=== PATIENT | male | born 1935 | race Caucasian/White ===

== ENCOUNTER 2018-11-04 09:55 | Outpatient (CLI) | payer MEDICARE ==
--- NOTE | 2018-11-04 11:18 | RAD ---
PA AND LATERAL VIEWS CHEST: Date: 11/04/18 HISTORY: Dyspnea. FINDINGS: The heart size is normal. The aorta is tortuous. The lungs are expanded without focal areas of consol idation, pneumothoraces, or pleural effusions. There are degenerative changes in the spine. A battery source is seen in the left anterior chest with leads traversing superiorly into the neck. IMPRESSION: No radiographic evidence of acute cardiopulmonary process. POS: [facility]
== END 2018-11-04 09:56 | disposition home or self-care (01) ==
LOC: RAD 09:55
PROVIDERS: ATTEND Internal Medicine Critical Care Medicine
DX: R06.00 Dyspnea, unspecified (principal)
CPT/HCPCS: 71046

== ENCOUNTER 2018-12-22 09:27 | Outpatient (CLI) | payer MEDICARE ==
--- NOTE | 2018-12-22 11:53 | RAD ---
XR Chest Pa Lat STANDARD HISTORY: Shortness of breath COMPARISON: 11/04/2018 exams. FINDINGS: Heart size and mediastinum are within normal limits. The lungs are clear of infiltrates. An electronic device overlies the left chest. IMPRESSION: No active intrathoracic disease.
--- NOTE | 2018-12-22 14:12 | NM ---
Radionucleotide ventilation perfusion lung scan HISTORY: Chest pain. I 26.99. FINDINGS: Ventilation images show good uptake of radiotracer throughout each lung. Mild areas of trap ping on washout views. Perfusion images show heterogeneous uptake throughout each lung without focal perfusion defect. Perfu milo gradient within normal limits. IMPRESSION: Exam is negative for clinically significant pulmonary embolus.
== END 2018-12-22 09:28 | disposition home or self-care (01) ==
LOC: NM 09:27
PROVIDERS: ATTEND Internal Medicine Critical Care Medicine
DX: I26.99 Other pulmonary embolism without acute cor pulmonale (principal)
CPT/HCPCS: 71046; 78582; A9540; A9558

== ENCOUNTER 2020-01-18 12:16 | Outpatient (CLI) | payer MEDICARE ==
--- NOTE | 2020-01-18 12:59 | RAD ---
Chest 2 views HISTORY: Dyspnea. COMPARISON: 12/22/2018. FINDINGS: Right iliac silhouette and pulmonary vasculature are unremarkable. Mediastinum is midline. Vagal nerve stimulator pack overlies the left anterior chest. No lobar consolidation, pleural fluid, or pneumothorax evident. Degenerative changes thoracic spine on the lateral view. IMPRESSION : Chronic-type findings are stable. No active cardiopulmonary abnormalities are demonstrated.
== END 2020-01-18 12:17 | disposition home or self-care (01) ==
LOC: BICRAD 12:16
PROVIDERS: ATTEND Internal Medicine Critical Care Medicine
DX: R06.00 Dyspnea, unspecified (principal)
CPT/HCPCS: 71046

== ENCOUNTER 2021-11-21 09:49 | Observation (INO) | payer MEDICARE ==
[2021-11-21 11:22] LABS: #Basophils 0.1 thou/uL (0.0-0.2); #Eosinphils 0.3 thou/uL (0.0-0.7); #Lymphocytes 1.2 thou/uL (1.20-3.40); #Monocytes 0.6 thou/uL (0.11-0.59); %Basophils 1.1 % (0.0-1.0); %Eosinophils 4.3 % (0.0-10.0); %Lymphocytes 19.2 % (21.0-51.0); %Monocytes 9.9 % (0.0-10.0); %Neutrophils 65.5 % (42.0-75.0); Hemoglobin 15.5 g/dL (14.0-18.0); Mean Corpuscular HGB CONC 32.6 g/dL (32.0-36.0); Mean Corpuscular Hemoglobin 30.5 pg (27.0-31.0); Mean Corpuscular Volume 93.5 fL (78.0-98.0); Mean Platelet Volume 6.6 fL (7.4-10.4); Platelet Count 207 thou/uL (130-400); RBC Distribution Width 12.2 % (11.5-14.5); Red Blood Cell (RBC) Count 5.08 mill/uL (4.70-6.10); White Blood Cell (WBC) Count 6.1 thou/uL (4.8-10.8)
[2021-11-21 11:42] LABS: ALT (SGPT) 20 U/L (8-55); AST (SGOT) 20 U/L (5-34); Albumin 4.1 g/dL (3.4-4.8); Alkaline Phosphatase 56 U/L (40-110); Anion Gap 11 mmol/L (10-20); BUN (Urea Nitrogen) 17 mg/dL (8.4-25.7); Bilirubin, Total 0.7 mg/dL (0.2-1.2); Calc. Creatinine Clearance 0 mL/min (70-130); Calcium 9.3 mg/dL (7.8-10.44); Carbon Dioxide 30 mmol/L (23-31); Chloride 102 mmol/L (98-107); Globulin 3.1 g/dL (2.4-3.5); Glucose 128 mg/dL (83-110); Protein, Total 7.2 g/dL (5.8-8.1); Sodium 139 mmol/L (136-145)
[2021-11-21] MEDS ORDERED: Aspirin Chewable 81 MG TAB ONE (13:33)
[2021-11-21] MEDS ORDERED: Apixaban 2.5 MG TAB PO SCH (13:45)
[2021-11-21] MEDS ORDERED: Acetaminophen 650 MG Suppository PR PRN (14:16)
[2021-11-21] MEDS ORDERED: Ondansetron PF 4 MG/2 ML Vial IVP PRN (14:16)
[2021-11-21] MEDS ORDERED: hydrALAZINE 20 MG/ML VIAL SLOW IVP PRN (14:16)
[2021-11-21] MEDS ORDERED: Acetaminophen 325 MG TAB PO PRN (14:16)
[2021-11-21] MEDS ORDERED: Ondansetron ODT 4 MG TAB PO PRN (14:16)
[2021-11-21 15:23] LABS: SARS-CoV-2 NAA Rapid Test Not Detected (NotDetected)
[2021-11-21 19:49] VITALS: BMI 28.8
[2021-11-21] MEDS: Atorvastatin Calcium 40 MG TAB PO SCH (21:24)
[2021-11-21] MEDS: Apixaban 2.5 MG TAB PO SCH (21:25)
[2021-11-22 06:38] LABS: #Eosinphils 0.5 thou/uL (0.0-0.7); #Lymphocytes 1.2 thou/uL (1.20-3.40); #Monocytes 0.8 thou/uL (0.11-0.59); #Neutrophils 3.3 thou/uL (1.40-6.50); %Basophils 0.7 % (0.0-1.0); %Eosinophils 8.9 % (0.0-10.0); %Lymphocytes 20.7 % (21.0-51.0); %Monocytes 13.8 % (0.0-10.0); %Neutrophils 55.9 % (42.0-75.0); Hemoglobin 14.5 g/dL (14.0-18.0); Mean Corpuscular HGB CONC 32.8 g/dL (32.0-36.0); Mean Corpuscular Hemoglobin 30.7 pg (27.0-31.0); Mean Corpuscular Volume 93.6 fL (78.0-98.0); Mean Platelet Volume 6.7 fL (7.4-10.4); Platelet Count 181 thou/uL (130-400); Red Blood Cell (RBC) Count 4.71 mill/uL (4.70-6.10); White Blood Cell (WBC) Count 5.9 thou/uL (4.8-10.8)
[2021-11-22 06:59] LABS: Anion Gap 11 mmol/L (10-20); BUN (Urea Nitrogen) 18 mg/dL (8.4-25.7); Calc. Creatinine Clearance 61 mL/min (70-130); Calcium 8.8 mg/dL (7.8-10.44); Carbon Dioxide 28 mmol/L (23-31); Cardiac Risk 3.3 (Less than 4.5); Chloride 104 mmol/L (98-107); Cholesterol 153 mg/dl (< 200 Desired); Glucose 147 mg/dL (83-110); HDL Cholesterol 46 mg/dL (>60 Neg Risk); LDL Cholesterol, Calculated 94 mg/dL; Potassium 4.1 mmol/L (3.5-5.1); Sodium 139 mmol/L (136-145); Triglycerides 63 mg/dL (Less than 150)
[2021-11-22] MEDS: Finasteride 5 MG TAB PO SCH (07:58)
[2021-11-22] MEDS: Apixaban 2.5 MG TAB PO SCH ×2 (07:59→20:08)
[2021-11-22] MEDS: Aspirin 81 mg Enteric Coated Tablet PO SCH (07:59)
[2021-11-22] MEDS: Montelukast Sodium 10 mg Tablet PO SCH (07:59)
[2021-11-22] MEDS ORDERED: ROTIGOTINE 6 MG TD SCH (09:00)
[2021-11-22] MEDS ORDERED: ROTIGOTINE 2 MG TD SCH (13:00)
[2021-11-22] MEDS ORDERED: ROTIGOTINE 4 MG TD SCH (13:00)
[2021-11-22] MEDS: Atorvastatin Calcium 40 MG TAB PO SCH (20:07)
[2021-11-22] MEDS ORDERED: Rasagiline Mesylate 1 MG Tab PO SCH (21:00)
[2021-11-23 07:19] VITALS: TEMP 97.7
[2021-11-23] MEDS: Finasteride 5 MG TAB PO SCH (09:01)
[2021-11-23] MEDS: Montelukast Sodium 10 mg Tablet PO SCH (09:01)
[2021-11-23] MEDS: Aspirin 81 mg Enteric Coated Tablet PO SCH (09:01)
[2021-11-23] MEDS: Apixaban 2.5 MG TAB PO SCH (09:01)
[2021-11-23 12:39] VITALS: BP 141/74
== END 2021-11-23 12:02 | disposition home or self-care (01) ==
LOC: ERS 09:49 → ERHOLD 13:16 → 2SW 19:21
PROVIDERS: ADMIT Hospitalist; ATTEND Hospitalist
DX: R53.1 Weakness (principal); G20 Parkinson's disease; I65.23 Occlusion and stenosis of bilateral carotid arteries; N40.0 Benign prostatic hyperplasia without lower urinary tract symptoms; Z86.711 Personal history of pulmonary embolism; Z79.01 Long term (current) use of anticoagulants; Z79.899 Other long term (current) drug therapy; Z96.82 Presence of neurostimulator; Z20.822 Contact with and (suspected) exposure to COVID-19
CPT/HCPCS: 70450 ×2; 80048; 80053; 80061; 84484; 85025 ×2; 93005; 93880; 97116 ×2; 97139 ×2; 97535; 99285; G0378 ×4; U0002; 36415

== ENCOUNTER 2022-11-17 01:01 | Inpatient (IN) | payer MEDICARE ==
[2022-11-17] MEDS ORDERED: Ketorolac Tromethamine 30 MG/ML VIAL ONE (01:53)
[2022-11-17] MEDS ORDERED: Dextrose 5% in Water 1,000 ML IV PRN (02:58)
[2022-11-17] MEDS ORDERED: Morphine 2 MG/ML VIAL SLOW IVP PRN (02:58)
[2022-11-17] MEDS ORDERED: Dextrose 50% Abboject 50 ML SYRINGE SLOW IVP PRN (02:58)
[2022-11-17] MEDS ORDERED: Ondansetron PF 4 MG/2 ML Vial IVP PRN (02:58)
[2022-11-17] MEDS ORDERED: Ipratropium/Albuterol 3 ML NEB NEB PRN (02:58)
[2022-11-17] MEDS ORDERED: Sodium Chloride 0.9% 1,000 ML IV SCH (03:00)
[2022-11-17] MEDS ORDERED: Morphine 4 MG/ML VIAL ONE ×3 (03:04→05:32)
[2022-11-17] MEDS ORDERED: Ondansetron PF 4 MG/2 ML Vial ONE ×2 (03:04→03:26)
[2022-11-17 03:46] LABS: #Basophils 0.1 thou/uL (0.0-0.2); #Eosinphils 0.1 thou/uL (0.0-0.7); #Monocytes 0.7 thou/uL (0.11-0.59); #Neutrophils 10.6 thou/uL (1.40-6.50); %Basophils 0.4 % (0.0-1.0); %Eosinophils 0.5 % (0.0-10.0); %Lymphocytes 7.9 % (21.0-51.0); %Monocytes 5.5 % (0.0-10.0); %Neutrophils 85.7 % (42.0-75.0); Hemoglobin 12.8 g/dL (14.0-18.0); Mean Corpuscular HGB CONC 32.7 g/dL (32.0-36.0); Mean Corpuscular Hemoglobin 30.6 pg (27.0-31.0); Mean Corpuscular Volume 93.7 fl (78.0-98.0); Mean Platelet Volume 7.5 fL (7.4-10.4); Platelet Count 208 10x3/uL (130-400); RBC Distribution Width 12.3 % (11.5-14.5); Red Blood Cell (RBC) Count 4.19 mill/uL (4.70-6.10); White Blood Cell (WBC) Count 12.4 10x3/uL (4.8-10.8)
[2022-11-17 04:02] LABS: INR-International Normal Ratio 1.2; PTT 26.5 sec (22.9-36.1); Prothrombin Time 15.4 sec (12.0-14.7)
[2022-11-17 04:08] LABS: ALT (SGPT) 18 U/L (8-55); AST (SGOT) 17 U/L (5-34); Albumin 3.6 g/dL (3.4-4.8); Alkaline Phosphatase 54 U/L (40-110); Anion Gap 11 mmol/L (10-20); BUN (Urea Nitrogen) 26 mg/dL (8.4-25.7); Bilirubin, Total 0.5 mg/dL (0.2-1.2); Calc. Creatinine Clearance 0 mL/min (70-130); Carbon Dioxide 25 mmol/L (23-31); Chloride 107 mmol/L (98-107); Estimated GFR 62; Globulin 2.3 g/dL (2.4-3.5); Glucose 249 mg/dL (83-110); Protein, Total 5.9 g/dL (5.8-8.1); Sodium 139 mmol/L (136-145)
[2022-11-17 04:32] LABS: Magnesium 1.7 mg/dL (1.6-2.6); Phosphorus 3.6 mg/dL (2.3-4.7)
[2022-11-17] MEDS: Acetaminophen 500 MG TAB PO SCH ×4 (05:50→20:14)
[2022-11-17] MEDS ORDERED: Famotidine/PF 20 mg/2ml Vial SLOW IVP SCH (09:00)
[2022-11-17 10:27] VITALS: BMI 28.0
[2022-11-17] MEDS: Sodium Chloride 0.9% 1,000 ML IV SCH (10:51)
[2022-11-17] MEDS: CEFAZOLIN 2 GM in Sodium Chloride 0.9% 100 ML IVPB SCH ×2 (13:18→22:05)
[2022-11-17] MEDS ORDERED: ROTIGOTINE 4 MG TOP SCH (16:00)
[2022-11-17] MEDS: Senokot S 8.6-50 MG TAB PO SCH (20:15)
[2022-11-18] MEDS: Sodium Chloride 0.9% 1,000 ML IV SCH ×2 (01:37→13:21)
[2022-11-18] MEDS: Acetaminophen 500 MG TAB PO SCH ×4 (02:45→20:16)
[2022-11-18] MEDS: CEFAZOLIN 2 GM in Sodium Chloride 0.9% 100 ML IVPB SCH ×4 (05:44→19:56)
[2022-11-18] MEDS ORDERED: Dextrose 50% Abboject 50 ML SYRINGE SLOW IVP PRN (06:43)
[2022-11-18] MEDS ORDERED: Dextrose 5% in Water 1,000 ML IV PRN (06:43)
[2022-11-18 06:55] LABS: #Basophils 0.1 thou/uL (0.0-0.2); #Eosinphils 0.1 thou/uL (0.0-0.7); #Lymphocytes 2.1 thou/uL (1.20-3.40); #Monocytes 1.1 thou/uL (0.11-0.59); #Neutrophils 8.1 thou/uL (1.40-6.50); %Basophils 0.5 % (0.0-1.0); %Lymphocytes 18.1 % (21.0-51.0); %Monocytes 9.5 % (0.0-10.0); %Neutrophils 70.9 % (42.0-75.0); Hemoglobin 10.8 g/dL (14.0-18.0); Mean Corpuscular HGB CONC 32.9 g/dL (32.0-36.0); Mean Corpuscular Volume 94.3 fl (78.0-98.0); Mean Platelet Volume 7.8 fL (7.4-10.4); Platelet Count 187 10x3/uL (130-400); RBC Distribution Width 12.2 % (11.5-14.5); Red Blood Cell (RBC) Count 3.49 mill/uL (4.70-6.10); White Blood Cell (WBC) Count 11.4 10x3/uL (4.8-10.8)
[2022-11-18 07:00] LABS: Anion Gap 8 mmol/L (10-20); BUN (Urea Nitrogen) 26 mg/dL (8.4-25.7); Calc. Creatinine Clearance 55 mL/min (70-130); Calcium 8.3 mg/dL (7.8-10.44); Carbon Dioxide 28 mmol/L (23-31); Chloride 107 mmol/L (98-107); Estimated GFR 63; Glucose 159 mg/dL (83-110); Magnesium 1.6 mg/dL (1.6-2.6); Phosphorus 3.1 mg/dL (2.3-4.7); Potassium 3.9 mmol/L (3.5-5.1); Sodium 139 mmol/L (136-145)
[2022-11-18] MEDS ORDERED: Magnesium 2 GM/50 ML(in water) 2 GM in Premix Bag 1 BAG IVPB SCH (08:00)
[2022-11-18] MEDS ORDERED: Non-Formulary Item 1 EACH (Rasagiline Mesylate 1 MG Tab) PO SCH (09:00)
[2022-11-18] MEDS ORDERED: Rasagiline Mesylate 1 MG Tab PO SCH ×2 (09:00→10:45)
[2022-11-18] MEDS: Finasteride 5 MG TAB PO SCH (09:07)
[2022-11-18] MEDS: Montelukast Sodium 10 mg Tablet PO SCH (09:08)
[2022-11-18] MEDS: Polyethylene Glycol 3350 17 GM Packet PO SCH (09:09)
[2022-11-18] MEDS: Senokot S 8.6-50 MG TAB PO SCH ×2 (09:09→20:17)
[2022-11-18] MEDS ORDERED: Morphine 2 MG/ML VIAL SLOW IVP PRN (10:27)
[2022-11-18] MEDS ORDERED: Morphine 2 MG/ML VIAL SLOW IVP SCH (10:45)
[2022-11-18] MEDS ORDERED: ROTIGOTINE 8 MG TOP SCH (12:00)
[2022-11-18] MEDS: ROTIGOTINE 4 MG TOP SCH (12:21)
[2022-11-18] MEDS ORDERED: fentaNYL PF 100 MCG/2 ML SYRINGE ONE (13:12)
[2022-11-18] MEDS ORDERED: Bupivacaine PF 0.5% 30 ML VIAL ONE (13:39)
[2022-11-18] MEDS ORDERED: GLYCOPYRROLATE/PF 0.2 MG/ML VIAL ONE (13:46)
[2022-11-18] MEDS ORDERED: Rocuronium Bromide 10 MG/ML (10ML VIAL) ONE (13:46)
[2022-11-18] MEDS ORDERED: PROPOFOL 200 MG/20 ML VIAL ONE (13:46)
[2022-11-18] MEDS ORDERED: Bupivacaine HCl 0.5%/Epinephrine 1:200,000/PF 30 ml Vial ONE (13:46)
[2022-11-18] MEDS ORDERED: Ondansetron PF 4 MG/2 ML Vial ONE (13:46)
[2022-11-18] MEDS ORDERED: Phenylephrine 10 MG/ML VIAL ONE (13:46)
[2022-11-18] MEDS ORDERED: ePHEDrine Sulfate 50 MG/10 ML VIAL ONE (13:46)
[2022-11-18] MEDS ORDERED: NEOSTIGMINE 3 MG/3 ML SYR 3 MG/3 ML SYRINGE ONE (13:46)
[2022-11-18] MEDS ORDERED: Lidocaine 1% PF 5 ML VIAL ONE (13:46)
[2022-11-18] MEDS ORDERED: ROTIGOTINE 4 MG TOP SCH (16:00)
[2022-11-18] MEDS: Rasagiline Mesylate 1 MG Tab PO SCH (20:16)
[2022-11-18] MEDS: HumaLOG 300 UNITS/3 ML VIAL SC PRN (21:50)
[2022-11-19] MEDS: Acetaminophen 500 MG TAB PO SCH ×4 (02:07→20:06)
[2022-11-19] MEDS ORDERED: CEFAZOLIN 2 GM in Sodium Chloride 0.9% 100 ML IVPB SCH (04:00)
[2022-11-19 06:05] LABS: #Eosinphils 0.1 thou/uL (0.0-0.7); #Lymphocytes 1.5 thou/uL (1.20-3.40); #Monocytes 1.3 thou/uL (0.11-0.59); #Neutrophils 11.1 thou/uL (1.40-6.50); %Basophils 0.3 % (0.0-1.0); %Eosinophils 0.5 % (0.0-10.0); %Lymphocytes 10.7 % (21.0-51.0); %Monocytes 9.5 % (0.0-10.0); Hemoglobin 10.6 g/dL (14.0-18.0); Mean Corpuscular Hemoglobin 32.5 pg (27.0-31.0); Mean Corpuscular Volume 92.9 fl (78.0-98.0); Mean Platelet Volume 7.8 fL (7.4-10.4); Platelet Count 186 10x3/uL (130-400); RBC Distribution Width 12.1 % (11.5-14.5); Red Blood Cell (RBC) Count 3.25 mill/uL (4.70-6.10)
[2022-11-19 06:20] LABS: Anion Gap 10 mmol/L (10-20); BUN (Urea Nitrogen) 18 mg/dL (8.4-25.7); Calc. Creatinine Clearance 52 mL/min (70-130); Calcium 8.6 mg/dL (7.8-10.44); Carbon Dioxide 28 mmol/L (23-31); Chloride 104 mmol/L (98-107); Estimated GFR 58; Glucose 190 mg/dL (83-110); Magnesium 1.8 mg/dL (1.6-2.6); Phosphorus 3.1 mg/dL (2.3-4.7); Potassium 4.2 mmol/L (3.5-5.1); Sodium 138 mmol/L (136-145)
[2022-11-19] MEDS: HumaLOG 300 UNITS/3 ML VIAL SC PRN ×4 (06:31→22:00)
[2022-11-19] MEDS ORDERED: Ibuprofen 800 MG TAB PO PRN (07:47)
[2022-11-19] MEDS ORDERED: traMADol HCl 50 MG TAB PO PRN (07:47)
[2022-11-19] MEDS ORDERED: Cyclobenzaprine 10 MG TAB PO PRN (07:47)
[2022-11-19] MEDS ORDERED: Magnesium 2 GM/50 ML(in water) 2 GM in Premix Bag 1 BAG IVPB SCH (08:00)
[2022-11-19] MEDS: traMADol HCl 50 MG TAB PO SCH ×3 (08:39→20:07)
[2022-11-19] MEDS: Polyethylene Glycol 3350 17 GM Packet PO SCH (08:40)
[2022-11-19] MEDS: Senokot S 8.6-50 MG TAB PO SCH ×2 (08:40→20:07)
[2022-11-19] MEDS: Montelukast Sodium 10 mg Tablet PO SCH (08:41)
[2022-11-19] MEDS: Finasteride 5 MG TAB PO SCH (08:41)
[2022-11-19] MEDS: Apixaban 2.5 MG TAB PO SCH ×2 (08:41→20:07)
[2022-11-19] MEDS ORDERED: Aspirin 81 mg Enteric Coated Tablet PO SCH (09:00)
[2022-11-19] MEDS: ROTIGOTINE 4 MG TOP SCH (11:28)
[2022-11-19] MEDS: Rasagiline Mesylate 1 MG Tab PO SCH (20:07)
[2022-11-20] MEDS: traMADol HCl 50 MG TAB PO SCH ×4 (02:01→20:20)
[2022-11-20] MEDS: Acetaminophen 500 MG TAB PO SCH ×4 (02:01→20:18)
[2022-11-20 05:41] LABS: #Eosinphils 0.3 thou/uL (0.0-0.7); #Lymphocytes 1.6 thou/uL (1.20-3.40); #Monocytes 1.4 thou/uL (0.11-0.59); #Neutrophils 9.8 thou/uL (1.40-6.50); %Basophils 0.3 % (0.0-1.0); %Eosinophils 2.6 % (0.0-10.0); %Lymphocytes 12.2 % (21.0-51.0); %Monocytes 10.5 % (0.0-10.0); %Neutrophils 74.5 % (42.0-75.0); Hemoglobin 9.7 g/dL (14.0-18.0); Mean Corpuscular HGB CONC 33.6 g/dL (32.0-36.0); Mean Corpuscular Hemoglobin 31.8 pg (27.0-31.0); Mean Corpuscular Volume 94.7 fl (78.0-98.0); Mean Platelet Volume 7.5 fL (7.4-10.4); Platelet Count 189 10x3/uL (130-400); RBC Distribution Width 12.2 % (11.5-14.5); Red Blood Cell (RBC) Count 3.05 mill/uL (4.70-6.10); White Blood Cell (WBC) Count 13.2 10x3/uL (4.8-10.8)
[2022-11-20 06:06] LABS: Anion Gap 12 mmol/L (10-20); BUN (Urea Nitrogen) 16 mg/dL (8.4-25.7); Calc. Creatinine Clearance 62 mL/min (70-130); Calcium 8.7 mg/dL (7.8-10.44); Carbon Dioxide 26 mmol/L (23-31); Chloride 105 mmol/L (98-107); Estimated GFR 72; Glucose 164 mg/dL (83-110); Potassium 4.6 mmol/L (3.5-5.1); Sodium 138 mmol/L (136-145)
[2022-11-20] MEDS: ROTIGOTINE 4 MG TOP SCH (11:21)
[2022-11-20] MEDS: Apixaban 2.5 MG TAB PO SCH ×2 (11:31→20:19)
[2022-11-20] MEDS: Finasteride 5 MG TAB PO SCH (11:32)
[2022-11-20] MEDS: Polyethylene Glycol 3350 17 GM Packet PO SCH (11:32)
[2022-11-20] MEDS: Senokot S 8.6-50 MG TAB PO SCH ×2 (11:32→20:19)
[2022-11-20] MEDS: Montelukast Sodium 10 mg Tablet PO SCH (11:32)
[2022-11-20] MEDS: Gabapentin 100 MG CAP PO SCH ×2 (14:43→20:19)
[2022-11-20] MEDS: HumaLOG 300 UNITS/3 ML VIAL SC PRN (17:35)
[2022-11-20] MEDS: Rasagiline Mesylate 1 MG Tab PO SCH (20:20)
[2022-11-21] MEDS: Acetaminophen 500 MG TAB PO SCH ×3 (01:58→12:56)
[2022-11-21] MEDS: traMADol HCl 50 MG TAB PO SCH ×3 (01:59→12:55)
[2022-11-21 06:01] LABS: #Basophils 0.1 thou/uL (0.0-0.2); #Eosinphils 0.6 thou/uL (0.0-0.7); #Lymphocytes 1.8 thou/uL (1.20-3.40); #Monocytes 1.1 thou/uL (0.11-0.59); #Neutrophils 7.6 thou/uL (1.40-6.50); %Basophils 0.6 % (0.0-1.0); %Eosinophils 5.8 % (0.0-10.0); %Lymphocytes 16.1 % (21.0-51.0); %Neutrophils 67.6 % (42.0-75.0); Hemoglobin 8.9 g/dL (14.0-18.0); Mean Corpuscular HGB CONC 33.5 g/dL (32.0-36.0); Mean Corpuscular Hemoglobin 31.8 pg (27.0-31.0); Mean Corpuscular Volume 94.8 fl (78.0-98.0); Mean Platelet Volume 7.3 fL (7.4-10.4); Platelet Count 219 10x3/uL (130-400); RBC Distribution Width 12.3 % (11.5-14.5); Red Blood Cell (RBC) Count 2.79 mill/uL (4.70-6.10); White Blood Cell (WBC) Count 11.2 10x3/uL (4.8-10.8)
[2022-11-21] MEDS: Polyethylene Glycol 3350 17 GM Packet PO SCH (09:19)
[2022-11-21] MEDS: Apixaban 2.5 MG TAB PO SCH (09:22)
[2022-11-21] MEDS: Senokot S 8.6-50 MG TAB PO SCH (09:23)
[2022-11-21] MEDS: Gabapentin 100 MG CAP PO SCH ×2 (09:24→15:36)
[2022-11-21] MEDS: Montelukast Sodium 10 mg Tablet PO SCH (09:27)
[2022-11-21] MEDS: Finasteride 5 MG TAB PO SCH (09:28)
[2022-11-21] MEDS: ROTIGOTINE 4 MG TOP SCH (12:08)
[2022-11-21] MEDS: HumaLOG 300 UNITS/3 ML VIAL SC PRN (12:12)
[2022-11-21 16:18] VITALS: BP 118/62; TEMP 98.6
== END 2022-11-21 17:00 | DRG 482 ==
LOC: ERS 01:01 → SURG A 03:02
PROVIDERS: ADMIT Surgery; ATTEND Surgery
PROC: 0QS706Z Reposition Left Upper Femur with Intramedullary Internal Fixation Device, Open Approach (ICD-10-PCS; principal; 2022-11-18)
DX: S72.142A Displaced intertrochanteric fracture of left femur, initial encounter for closed fracture (principal); G20 Parkinson's disease; N40.0 Benign prostatic hyperplasia without lower urinary tract symptoms; R73.9 Hyperglycemia, unspecified; F03.90 Unspecified dementia, unspecified severity, without behavioral disturbance, psychotic disturbance, mood disturbance, and anxiety; F32.A Depression, unspecified; W06.XXXA Fall from bed, initial encounter; Z79.899 Other long term (current) drug therapy; Z98.890 Other specified postprocedural states; Z98.49 Cataract extraction status, unspecified eye; Z79.01 Long term (current) use of anticoagulants; Z82.3 Family history of stroke; Z86.711 Personal history of pulmonary embolism
CPT/HCPCS: 36415; 36416; 70450; 71045; 72125; 72170; 80048; 80053; 83735; 84100; 85025; 85610; 85730; 86850; 86900; 86901; 93005; 96372; 96374; 96375; 96376; C1713; G0390; J1815; J1885; J2270; J2272; J2370; J2405; J2704; J3475; J3490; J7050; S0020; S0028

== ENCOUNTER 2023-03-07 14:43 | Emergency (ER) | payer MEDICARE ==
[2023-03-07] MEDS ORDERED: Ibuprofen 200 MG TAB ONE (15:36)
== END 2023-03-07 16:15 | disposition home or self-care (01) ==
LOC: ERS 14:43
DX: M25.562 Pain in left knee (principal)

== ENCOUNTER 2023-06-25 17:00 | Outpatient (CLI) | payer MEDICARE | END 2023-06-25 17:01 | disposition home or self-care (01) | LOC: SLEEPLAB 17:00 | PROVIDERS: ATTEND Family Medicine | DX: G47.33 Obstructive sleep apnea (adult) (pediatric) (principal); R35.1 Nocturia; I49.3 Ventricular premature depolarization | CPT/HCPCS: 95810 ==

== ENCOUNTER 2023-06-30 16:15 | Emergency (ER) | payer MEDICARE ==
[2023-06-30 18:49] LABS: #Eosinphils 0.1 thou/uL (0.0-0.7); #Monocytes 0.7 thou/uL (0.11-0.59); #Neutrophils 4.8 thou/uL (1.40-6.50); %Basophils 0.4 % (0.0-1.0); %Eosinophils 1.2 % (0.0-10.0); %Lymphocytes 22.9 % (21.0-51.0); %Monocytes 9.1 % (0.0-10.0); %Neutrophils 66.1 % (42.0-75.0); Hematocrit 38.3 % (42.0-52.0); Hemoglobin 12.6 g/dL (14.0-18.0); Mean Corpuscular HGB CONC 32.9 g/dL (32.0-36.0); Mean Corpuscular Hemoglobin 31.1 pg (27.0-31.0); Mean Corpuscular Volume 94.6 fl (78.0-98.0); Mean Platelet Volume 9.2 fL (7.4-10.4); Platelet Count 235 10x3/uL (130-400); RBC Distribution Width 13.2 % (11.5-14.5); Red Blood Cell (RBC) Count 4.05 mill/uL (4.70-6.10); White Blood Cell (WBC) Count 7.3 10x3/uL (4.8-10.8)
[2023-06-30 19:07] LABS: INR-International Normal Ratio 1.1; Prothrombin Time 14.8 sec (12.0-14.7)
[2023-06-30 19:08] LABS: PTT 27.8 sec (22.9-36.1)
[2023-06-30 19:18] LABS: ALT (SGPT) 11 U/L (8-55); AST (SGOT) 13 U/L (5-34); Albumin 4.1 g/dL (3.4-4.8); Alkaline Phosphatase 63 U/L (40-110); Anion Gap 13 mmol/L (10-20); BUN (Urea Nitrogen) 22 mg/dL (8.4-25.7); Bilirubin, Total 0.3 mg/dL (0.2-1.2); Calc. Creatinine Clearance 0 mL/min (70-130); Calcium 9.1 mg/dL (7.8-10.44); Carbon Dioxide 28 mmol/L (23-31); Chloride 103 mmol/L (98-107); Estimated GFR 53; Globulin 2.5 g/dL (2.4-3.5); Glucose 202 mg/dL (83-110); Potassium 4.2 mmol/L (3.5-5.1); Protein, Total 6.6 g/dL (5.8-8.1); Sodium 140 mmol/L (136-145)
== END 2023-06-30 20:10 | disposition home or self-care (01) ==
LOC: ERS 16:15
DX: S09.90XA Unspecified injury of head, initial encounter (principal); I45.10 Unspecified right bundle-branch block; R73.9 Hyperglycemia, unspecified; Z86.711 Personal history of pulmonary embolism; Z79.01 Long term (current) use of anticoagulants; W05.0XXA Fall from non-moving wheelchair, initial encounter
CPT/HCPCS: 36415; 70450; 71045; 72125; 72170; 80053; 85025; 85610; 85730; 93005; 94760

== ENCOUNTER 2023-09-07 23:19 | Emergency (ER) | payer MEDICARE ==
[2023-09-08 00:05] LABS: #Basophils 0.1 thou/uL (0.0-0.2); #Eosinphils 0.2 thou/uL (0.0-0.7); #Monocytes 0.9 thou/uL (0.11-0.59); #Neutrophils 5.4 thou/uL (1.40-6.50); %Basophils 0.6 % (0.0-1.0); %Eosinophils 2.7 % (0.0-10.0); %Lymphocytes 22.1 % (21.0-51.0); %Monocytes 10.6 % (0.0-10.0); %Neutrophils 63.6 % (42.0-75.0); Hemoglobin 13.3 g/dL (14.0-18.0); Mean Corpuscular HGB CONC 33.3 g/dL (32.0-36.0); Mean Corpuscular Hemoglobin 31.1 pg (27.0-31.0); Mean Corpuscular Volume 93.7 fl (78.0-98.0); Mean Platelet Volume 9.7 fL (7.4-10.4); Platelet Count 253 10x3/uL (130-400); RBC Distribution Width 13.2 % (11.5-14.5); Red Blood Cell (RBC) Count 4.27 mill/uL (4.70-6.10); White Blood Cell (WBC) Count 8.4 10x3/uL (4.8-10.8)
[2023-09-08 00:29] LABS: ALT (SGPT) 19 U/L (8-55); AST (SGOT) 20 U/L (5-34); Albumin 4.3 g/dL (3.4-4.8); Alkaline Phosphatase 67 U/L (40-110); Anion Gap 15 mmol/L (10-20); BUN (Urea Nitrogen) 31 mg/dL (8.4-25.7); Bilirubin, Total 0.3 mg/dL (0.2-1.2); Calc. Creatinine Clearance 0 mL/min (70-130); Calcium 9.6 mg/dL (7.8-10.44); Carbon Dioxide 28 mmol/L (23-31); Chloride 105 mmol/L (98-107); Estimated GFR 53; Globulin 2.5 g/dL (2.4-3.5); Glucose 147 mg/dL (83-110); Magnesium 1.8 mg/dL (1.6-2.6); Potassium 4.3 mmol/L (3.5-5.1); Protein, Total 6.8 g/dL (5.8-8.1); Sodium 144 mmol/L (136-145)
[2023-09-08 00:31] LABS: Troponin I Less than 0.010 ng/mL (< 0.028)
== END 2023-09-08 07:11 ==
LOC: ERS 23:19
DX: S00.83XA Contusion of other part of head, initial encounter (principal); R79.89 Other specified abnormal findings of blood chemistry; W18.30XA Fall on same level, unspecified, initial encounter
CPT/HCPCS: 70450; 71045; 72125; 72170; 80053; 83735; 84484; 85025; 93005; G0390

== ENCOUNTER 2023-10-07 08:07 | Emergency (ER) | payer MEDICARE ==
[2023-10-07 09:54] LABS: #Eosinphils 0.2 thou/uL (0.0-0.7); #Monocytes 0.7 thou/uL (0.11-0.59); #Neutrophils 6.5 thou/uL (1.40-6.50); %Basophils 0.5 % (0.0-1.0); %Eosinophils 1.8 % (0.0-10.0); %Lymphocytes 14.7 % (21.0-51.0); %Monocytes 7.8 % (0.0-10.0); Hemoglobin 12.3 g/dL (14.0-18.0); Mean Corpuscular HGB CONC 32.4 g/dL (32.0-36.0); Mean Corpuscular Hemoglobin 30.6 pg (27.0-31.0); Mean Corpuscular Volume 94.5 fl (78.0-98.0); Mean Platelet Volume 9.2 fL (7.4-10.4); Platelet Count 243 10x3/uL (130-400); RBC Distribution Width 13.1 % (11.5-14.5); Red Blood Cell (RBC) Count 4.02 mill/uL (4.70-6.10); White Blood Cell (WBC) Count 8.7 10x3/uL (4.8-10.8)
[2023-10-07 10:17] LABS: Albumin 3.9 g/dL (3.4-4.8)
[2023-10-07 10:18] LABS: Chloride 104 mmol/L (98-107); Potassium 3.9 mmol/L (3.5-5.1); Sodium 140 mmol/L (136-145)
[2023-10-07 10:19] LABS: Calcium 9.3 mg/dL (7.8-10.44); Glucose 158 mg/dL (83-110)
[2023-10-07 10:20] LABS: Globulin 2.5 g/dL (2.4-3.5); Protein, Total 6.4 g/dL (5.8-8.1)
[2023-10-07 10:21] LABS: Anion Gap 11 mmol/L (10-20); Bilirubin, Total 0.6 mg/dL (0.2-1.2); Carbon Dioxide 29 mmol/L (23-31)
[2023-10-07 10:22] LABS: Alkaline Phosphatase 58 U/L (40-110)
[2023-10-07 10:23] LABS: BUN (Urea Nitrogen) 21 mg/dL (8.4-25.7); Calc. Creatinine Clearance 0 mL/min (70-130); Estimated GFR 70
[2023-10-07 10:24] LABS: AST (SGOT) 14 U/L (5-34)
[2023-10-07 10:25] LABS: ALT (SGPT) 12 U/L (8-55)
== END 2023-10-07 12:13 | disposition home or self-care (01) ==
LOC: ERS 08:07
DX: F03.90 Unspecified dementia, unspecified severity, without behavioral disturbance, psychotic disturbance, mood disturbance, and anxiety (principal); R03.0 Elevated blood-pressure reading, without diagnosis of hypertension; D64.9 Anemia, unspecified
CPT/HCPCS: 36415; 80053; 85025; 93005

== ENCOUNTER 2024-01-07 11:47 | Emergency (ER) | payer MEDICARE ==
[2024-01-07 12:16] LABS: #Basophils 0.04 10x3/uL (0.0-0.2); %Basophils 0.5 % (0.0-1.0); %Eosinophils 1.3 % (0.0-10.0); %Lymphocytes 16.4 % (21.0-51.0); %Monocytes 8.1 % (0.0-10.0); %Neutrophils 73.3 % (42.0-75.0); Hematocrit 38.4 % (42.0-52.0); Hemoglobin 12.7 g/dL (14.0-18.0); Mean Corpuscular HGB CONC 33.1 g/dL (32.0-36.0); Mean Corpuscular Hemoglobin 29.5 pg (27.0-31.0); Mean Corpuscular Volume 89.3 fL (78.0-98.0); Mean Platelet Volume 9.5 fL (7.4-10.4); Platelet Count 244 10x3/uL (130-400)
[2024-01-07 12:34] LABS: ALT (SGPT) 10 U/L (8-55); AST (SGOT) 14 U/L (5-34); Albumin 3.5 g/dL (3.4-4.8); Alkaline Phosphatase 70 U/L (40-110); Anion Gap 10 mmol/L (10-20); BUN (Urea Nitrogen) 25 mg/dL (8.4-25.7); Bilirubin, Total 0.4 mg/dL (0.2-1.2); Calc. Creatinine Clearance 0 mL/min (70-130); Calcium 9.4 mg/dL (7.8-10.44); Carbon Dioxide 29 mmol/L (23-31); Chloride 106 mmol/L (98-107); Estimated GFR 72; Globulin 2.9 g/dL (2.4-3.5); Glucose 109 mg/dL (83-110); Lipase 30 U/L (8-78); Potassium 3.9 mmol/L (3.5-5.1); Protein, Total 6.4 g/dL (5.8-8.1); Sodium 141 mmol/L (136-145)
[2024-01-07 15:42] LABS: Bacteria/HPF None Seen HPF (None Seen); Bilirubin Negative (Negative); Blood, Urine Trace (Negative); CAUTI Indications for Culture Pelvic or flank pain; Clarity Clear (Clear); Glucose, Urine (Dipstick) Normal (Negative); Ketone, Urine Negative (Negative); Leukocyte Negative Leu/uL (Negative); Nitrite Negative (Negative); Protein, Urine (Dipstick) 20 mg/dL (Neg-Trace); Specific Gravity, Urine 1.025 (1.002-1.036); Squamous Epithelial 0-3 HPF (0-3); Urobilinogen Normal mg/dL (Less than 2); WBC/HPF 0-3 HPF (0-3); pH, Urine 6.5 (5.0-9.0)
[2024-01-07 15:44] LABS: Urine Culture Reflex No No
== END 2024-01-07 17:15 ==
LOC: ERS 11:47
DX: I10 Essential (primary) hypertension (principal); E11.9 Type 2 diabetes mellitus without complications; Z79.84 Long term (current) use of oral hypoglycemic drugs; Z79.01 Long term (current) use of anticoagulants; Z79.899 Other long term (current) drug therapy
CPT/HCPCS: 36415; 51701; 80053; 81001; 83605; 83690; 84484; 85025; 99284

== ENCOUNTER 2024-05-07 23:54 | Emergency (ER) | payer MEDICARE ==
[2024-05-08 00:16] LABS: #Basophils 0.04 10x3/uL (0.0-0.2); %Basophils 0.4 % (0.0-1.0); %Eosinophils 1.7 % (0.0-10.0); %Lymphocytes 20.6 % (21.0-51.0); %Monocytes 11.2 % (0.0-10.0); %Neutrophils 65.8 % (42.0-75.0); Hematocrit 39.4 % (42.0-52.0); Mean Corpuscular Hemoglobin 30.3 pg (27.0-31.0); Mean Corpuscular Volume 91.8 fL (78.0-98.0); Mean Platelet Volume 9.6 fL (7.4-10.4); Platelet Count 253 10x3/uL (130-400); RBC Distribution Width 14.1 % (11.5-14.5); Red Blood Cell (RBC) Count 4.29 mill/uL (4.70-6.10)
[2024-05-08] MEDS ORDERED: Labetalol HCl 100 MG/20 ML VIAL ONE (00:16)
[2024-05-08] MEDS ORDERED: Aspirin Chewable 81 MG TAB ONE (00:16)
[2024-05-08 00:34] LABS: ALT (SGPT) 18 U/L (8-55); AST (SGOT) 21 U/L (5-34); Albumin 3.7 g/dL (3.4-4.8); Alkaline Phosphatase 70 U/L (40-110); Anion Gap 18 mmol/L (10-20); BUN (Urea Nitrogen) 27 mg/dL (8.4-25.7); Bilirubin, Total 0.2 mg/dL (0.2-1.2); Calc. Creatinine Clearance 0 mL/min (70-130); Calcium 9.3 mg/dL (7.8-10.44); Carbon Dioxide 25 mmol/L (23-31); Chloride 105 mmol/L (98-107); Estimated GFR 55; Globulin 3.4 g/dL (2.4-3.5); Glucose 144 mg/dL (83-110); Potassium 4.5 mmol/L (3.5-5.1); Protein, Total 7.1 g/dL (5.8-8.1); Sodium 143 mmol/L (136-145)
[2024-05-08 00:40] LABS: Troponin I 0.011 ng/mL (< 0.028)
[2024-05-08 04:07] LABS: Troponin I 0.012 ng/mL (< 0.028)
== END 2024-05-08 05:28 ==
LOC: ERS 23:54
DX: R07.89 Other chest pain (principal); I10 Essential (primary) hypertension; E11.9 Type 2 diabetes mellitus without complications; E78.5 Hyperlipidemia, unspecified; K21.9 Gastro-esophageal reflux disease without esophagitis; J45.909 Unspecified asthma, uncomplicated; Z79.899 Other long term (current) drug therapy; Z79.51 Long term (current) use of inhaled steroids; Z79.84 Long term (current) use of oral hypoglycemic drugs
CPT/HCPCS: 71045; 80053; 84484; 85025; 93005; 96374

== ENCOUNTER 2025-08-09 06:57 | Emergency (ER) | payer MEDICARE ==
[2025-08-09 07:50] LABS: Actual Bicarbonate (HCO3v) 27.8 mEq/L (22-28); Base Excess 1.6 mEq/L (-2.0 to +3.0); Calcium, Ionized (venous) 1.17 mmol/L (1.16-1.32); Chloride (VBG) 102 mmol/L (98-106); Hematocrit-VBG 37 % (42.0-52.0); Hemoglobin (Hb) 12.5 g/dL (12.6-17.4); Potassium (VBG) 3.62 mmol/L (3.70-5.30); Sodium 146 mmol/L (133-146)
[2025-08-09 07:58] LABS: #Basophils 0.03 10x3/uL (0.0-0.2); #Eosinophils 0.04 10x3/uL (0.0-0.7); #Monocytes 1.47 10x3/uL (0.11-0.59); #Neutrophils 14.94 10x3/uL (1.40-6.50); %Basophils 0.2 % (0.0-1.0); %Eosinophils 0.2 % (0.0-10.0); %Lymphocytes 7.4 % (21.0-51.0); %Monocytes 8.2 % (0.0-10.0); %Neutrophils 83.2 % (42.0-75.0); Hematocrit 35.1 % (42.0-52.0); Hemoglobin 10.9 g/dL (14.0-18.0); Mean Corpuscular Hemoglobin 28.5 pg (27.0-31.0); Mean Corpuscular Volume 91.9 fL (78.0-98.0); Platelet Count 253 10x3/uL (130-400); Red Blood Cell (RBC) Count 3.82 mill/uL (4.70-6.10); White Blood Cell (WBC) Count 17.95 10x3/uL (4.8-10.8)
[2025-08-09 08:23] LABS: ALT (SGPT) 31 U/L (Less than 45); AST (SGOT) 29 U/L (11-34); Albumin 3.3 g/dL (3.1-4.5); Alkaline Phosphatase 106 U/L (40-110); Anion Gap 19 mmol/L (10-20); BUN (Urea Nitrogen) 23 mg/dL (8.4-25.7); Bilirubin, Total 0.6 mg/dL (0.3-1.2); Calc. Creatinine Clearance 0 mL/min (70-130); Calcium 9.5 mg/dL (7.8-10.44); Carbon Dioxide 26 mmol/L (23-31); Chloride 103 mmol/L (98-107); Globulin 3.5 g/dL (2.4-3.5); Glucose 182 mg/dL (83-110); Potassium 3.6 mmol/L (3.5-5.1); Sodium 144 mmol/L (136-145)
== END 2025-08-09 19:30 | disposition home or self-care (01) ==
LOC: ERS 06:57
DX: B34.9 Viral infection, unspecified (principal); I10 Essential (primary) hypertension; E11.9 Type 2 diabetes mellitus without complications; K21.9 Gastro-esophageal reflux disease without esophagitis; Z79.899 Other long term (current) drug therapy; Z55.6 Problems related to health literacy; Z79.01 Long term (current) use of anticoagulants
CPT/HCPCS: 36415; 71045; 80053; 82805; 84484; 85025; 87428; 93005